=== PATIENT | female | born 1985 | race American Indian/Alaskan Native ===

== ENCOUNTER → 2018-12-17 | Day surgery (SDC) | payer OTHER ==
[~2018-12-17] MED LIST: FENTANYL CITRATE/PF 100MCG/2 ML INJ ONE; LIDOCAINE HCL 2% LOCAL INJ 5 ML SDV VIAL INJ ONE; METOCLOPRAMIDE HCL 10 MG/2ML VIAL ONE; MIDAZOLAM HCL 2 MG/2 ML VIAL ONE; PROBIOTICS; PROPOFOL IV EMULSION 10 MG/ML 20 ML VIAL ONE
[2018-12-17 13:20] VITALS: BP 105/71
--- NOTE | 2018-12-17 14:22 | Operative Report ---
DATE OF PROCEDURE: 12/17/2018 SURGEON: Saleem Hampton MD PROCEDURE: Esophagogastroduodenoscopy with biopsies. INDICATIONS FOR PROCEDURE: Upper abdominal pain, heartburn. MEDICATIONS: The patient was done under MAC, please see anesthesiologist's note. PROCEDURE IN DETAIL: With the patient in left lateral decubitus position, flexible fiberoptic Olympus gastroscope was introduced into the esophagus under direct visualization without any difficulty. There was some patchy erythema noted in distal esophagus. The scope was then advanced with ease into her stomach. Mucosa overlying the antrum and the body revealed some patchy intense erythema, [id number] edema and biopsies were obtained and sent to stain for H pylori. The pylorus was of normal contour and shape, it was intubated with ease and the scope was advanced all the way to the second portion of the duodenum. Biopsies were obtained from the proximal second portion and duodenal bulb to rule out sprue. The scope was then withdrawn back into the stomach and retroflexed and mucosa overlying the fundus and cardia appeared to be within normal limits. The scope was then straightened out, it was subsequently withdrawn. The patient tolerated the procedure well. IMPRESSION: 1. Distal esophagitis. 2. Gastritis, biopsied. Biopsies sent to stain for Helicobacter pylori. 3. Rule out sprue. PLAN: Follow up histology. Initiate Protonix 40 mg one p.o. q.a.m. a.c. Saleem Hampton MD [facility] [place] /[id number] cc: Michael Brown DO
== END | disposition home or self-care (01) ==
LOC: OR 11:00
PROVIDERS: ATTEND Internal Medicine Gastroenterology
DX: K29.70 Gastritis, unspecified, without bleeding (principal); K20.9 Esophagitis, unspecified; B96.81 Helicobacter pylori [H. pylori] as the cause of diseases classified elsewhere; K59.09 Other constipation; R19.5 Other fecal abnormalities; H91.90 Unspecified hearing loss, unspecified ear; R42 Dizziness and giddiness; F41.9 Anxiety disorder, unspecified; Z88.0 Allergy status to penicillin; Z68.28 Body mass index [BMI] 28.0-28.9, adult
CPT/HCPCS: 43239; 81025; J2001; J2250; J2704; J2765

== ENCOUNTER → 2021-07-26 | Day surgery (SDC) | payer BC ==
[~2021-07-26] MED LIST changes: +DICYCLOMINE HCL10 MG PO; -METOCLOPRAMIDE HCL 10 MG/2ML VIAL ONE; +ONDANSETRON HCL INJ 2MG/ML 2ML 2 MG/ML VIAL ONE; +POVIDONE IODINE 0.05% 0.05 % ML PO ONE; +SIMETHICONE 40 MG/0.6 ML BTL ONE
[2021-07-26 08:57] VITALS: BP 115/69
== END | disposition home or self-care (01) ==
LOC: OR 06:00
PROVIDERS: ATTEND Internal Medicine Gastroenterology
DX: K29.70 Gastritis, unspecified, without bleeding (principal); K20.90 Esophagitis, unspecified without bleeding; K31.89 Other diseases of stomach and duodenum; K21.9 Gastro-esophageal reflux disease without esophagitis; F41.9 Anxiety disorder, unspecified; Z88.0 Allergy status to penicillin; Z01.812 Encounter for preprocedural laboratory examination; Z20.822 Contact with and (suspected) exposure to COVID-19
CPT/HCPCS: 43239; 81025; C9113; J2001; J2250; J2405; J2704; J3010; U0002